=== PATIENT | male | born 1970 | race Caucasian/White ===

== ENCOUNTER → 2019-04-15 12:56 | Outpatient (CLI) | payer BC, SELFPAY ==
[2019-04-15 14:22] LABS: Prostate Specific Antigen 2.29 ng/mL (0.10-4.00)
== END ==
PROVIDERS: Visit Provider Urology
DX: Z80.42 Family history of malignant neoplasm of prostate (principal); N40.1 Benign prostatic hyperplasia with lower urinary tract symptoms; N13.8 Other obstructive and reflux uropathy
CPT/HCPCS: 36415; 84153

== ENCOUNTER → 2020-04-29 12:34 | Outpatient (CLI) | payer BC, SELFPAY ==
--- NOTE | 2020-04-29 13:14 | DI.CT.S_ITS ---
PROCEDURE: CT ABDOMEN PELVIS WO/W CON INDICATIONS: Gross hematuria TECHNIQUE: Optional 5 mm thick noncontrast images acquired from the diaphragm to the symphysis pubis. After the administration of intravenous contrast, 5 mm thick images acquired from the diaphragm to the symphysis pubis after a 10-minute delay. 2 mm thick coronal and sagittal reformats were then performed of the kidneys and ureters. For radiation dose reduction, the following was used: automated exposure control, adjustment of mA and/or kV according to patient size. COMPARISON: None. FINDINGS: Image quality: Excellent. Lung bases: Lung bases are clear. Heart size is normal. Urinary system: Both kidneys are normal in size, without hydronephrosis or nephrolithiasis on pre-contrast images. No perinephric fat stranding. Postcontrast, there is demonstrated numerous ovoid hypodensities, mainly subcentimeter in size at the corticomedullary junctions resulting in blunting of some of the papillary contours. There are no more distal visible filling defects, although the right ureter is not well opacified. No suspicious filling defects within the urinary bladder. The prostate gland is enlarged. Other solid organs: Liver is normal in size and enhancement. A slightly irregular hypodensity is present in the lateral dome of the liver, and upper aspect of the spleen, both potential hemangiomas. Other scattered hypodensities too small to characterize are seen in the liver. Gallbladder contains a small noncalcified hyperdensity along the lateral wall measuring approximately 5 mm, potentially a polyp. Biliary system is non dilated. Pancreas enhances normally. Spleen is normal in size and enhancement. No adrenal nodules. Peritoneum and bowel: Bowel loops demonstrate normal wall thickness and caliber. No free fluid or air. Nodes and vessels: No retroperitoneal or mesenteric adenopathy by size criteria. Aorta and inferior vena cava are normal in size. Abdominal wall: No ventral hernias. Pelvis: No pathologic free pelvic fluid. No inguinal hernias or adenopathy. Bones: No suspicious bony lesions. No vertebral body compression fractures. IMPRESSION: 1. 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 2. Probable hemangiomas in the spleen and liver. 3. Prostatomegaly which may also contribute to hematuria. Dictated by: Brianna Escamilla M.D. on 04/29/2020 at 15:18 Approved by: Brianna Escamilla M.D. on 04/29/2020 at 15:46
[2020-04-29 15:40] LABS: Alanine Aminotransferase 14 IU/L (<50); Albumin 4.4 g/dL (3.5-5.0); Albumin Globulin Ratio 1.6 (1.0-2.8); Alkaline Phosphatase 55 U/L (38-126); Aspartate Aminotransferase 23 IU/L (17-59); BUN Creatinine Ratio 12.4 (6-22); Bilirubin Total 0.4 mg/dL (0.2-1.3); Blood Urea Nitrogen 11 mg/dL (9-20); Calcium 9.5 mg/dL (8.4-10.2); Carbon Dioxide 28 mmol/L (22-32); Chloride 98 mmol/L (98-107); Estimated Glomerular Filt Rate > 60.0 mL/min (>60); Globulin 2.8 g/dL (1.7-4.1); Glucose 86 mg/dL (70-100); HEMOLYSIS < 15 (0-50); Potassium 4.3 mmol/L (3.4-5.1); Sodium 135 mmol/L (137-145); Total Protein 7.2 g/dL (6.3-8.2)
[2020-04-29 16:08] LABS: Prostate Specific Antigen 3.92 ng/mL (0.10-4.00)
== END ==
PROVIDERS: Referring Provider Urology; Visit Provider Urology
DX: Z12.5 Encounter for screening for malignant neoplasm of prostate (principal); R31.0 Gross hematuria; N28.1 Cyst of kidney, acquired; N40.0 Benign prostatic hyperplasia without lower urinary tract symptoms
CPT/HCPCS: 36415; 74178; 80053; 84153; Q9967

== ENCOUNTER → 2021-05-17 09:37 | Outpatient (CLI) | payer BC, SELFPAY ==
[2021-05-17 10:29] LABS: COVID19 -Nasal RAPID Negative (Negative)
== END ==
PROVIDERS: Visit Provider Surgery
DX: Z20.822 Contact with and (suspected) exposure to COVID-19 (principal)
CPT/HCPCS: 87635; C9803

== ENCOUNTER 2021-05-18 15:12 | Day surgery (SDC) | payer BC, SELFPAY ==
--- NOTE | 2021-05-18 | PATH_ITS ---
[facility] Accession Number: [id number] . 01 Material submitted: . colon - POLYP ASCENDING COLON . 02 Diagnosis: Ascending Colon Polyp, Biopsy: Inflammatory polyp. MRV 05/23/2021 1038 Local . 02 Electronically signed: . Agustín Wan MD, PhD, Pathologist NPI- [id number] . 01 Gross description: . POLYP ASCENDING COLON: Received in formalin is 1 fragment(s) of garcia, soft tissue measuring 0.5 x 1.0 x 0.5 cm submitted entirely in 1 cassette(s) /ARJUN 05/19/2021 0708 Local . 02 Pathologist provided ICD-10: K51.40 . 02 CPT . 936403 Performed at: 01 [facility] [address] [facility], [place], [place] [id number] MD Saroj Hernandez MD Phone: [phone] Performed at: 02 [facility] [address] [place], [place] [id number] MD Saundra Carlson MD Phone: [phone]
[2021-05-18 15:38] VITALS: BP 115/67; PULSE 62; RESP 16; TEMP 36.6; BMI 23.7
[2021-05-18] MEDS: LACTATED RINGERS 1,000 ML 200 ML IV (15:54)
--- NOTE | 2021-05-18 16:06 | PM.HP.1 ---
History of Present Illness History of Present Illness Date Patient Seen: 05/18/21 Time Patient Seen: 16:06 Chief complaint: SDC Narrative: The patient presents for colorectal sreening. They have never had any previous examination for such. No personal or family history of colon cancer. On further history denies any recent gastrointestinal symptoms. No nausea, vomiting, abdominal pain, loss of appetite, unexplained weight loss, change in bowel habits, diarrhea, constipation, melena, hematochezia, or bright red blood per rectum. Patient History Family & Social History Social History: household members spouse Tobacco & Substance use: Smoking Status Never smoker alcohol intake current alcohol intake frequency 0-2 drinks per day Substance Use Type does not use Meds Home Medications and Allergies Allergies Allergy/AdvReac Type Severity Reaction Status Date / Time No Known Drug Allergies Allergy Verified 05/18/21 15:35 Review of Systems Review of Systems ROS: Yes All systems reviewed with the patient and are negative except as otherwise documented Exam Vital Signs (past 8 hours): - 05/18/21 15:38 Temperature 97.9 F Pulse Rate 62 Respiratory Rate 16 Blood Pressure 115/67 Oxygen Delivery Method Room Air Narrative Exam Narrative: GENERAL-well developed adult male, no acute distress HEENT-no scleral icterus, hearing intact NECK-no JVD, trachea midline CVS- regular rate, no peripheral edema RESP-unlabored respiratory effort, no audible wheezing GI-soft, nontender nondistended MSK-no cyanosis or clubbing, extremities without deformity SKIN-warm, dry NEURO-alert and oriented, no focal deficits PYSCH-Appropriate mood and affect Assessment & Plan Assessment & Plan narrative: The patient requires colorectal screening and colonoscopy is recommended. Technical details were discussed. Risks, benefits, alternatives explained. Risks including but not limited to myocardial infarction, aspiration, bleeding, pain, missed lesion, incomplete examination, need for further radiographic studies, colonic perforation, and need for major abdominal surgery were discussed. All questions were answered to their satisfaction, and they are in agreement with this plan.
[2021-05-18] MEDS: MIDAZOLAM 5 MG/5 ML VIAL IV (16:21)
[2021-05-18] MEDS: fentaNYL 250 MCG/5 ML INJ IV (16:21)
--- NOTE | 2021-05-18 16:38 | P.OP.ENDO_ITS ---
Operative Date/Time/Diagnoses Date of procedure: 05/18/21 Time of procedure: 16:38 Pre-op diagnosis: Screening colonoscopy Post-op diagnosis: same Procedure & Clinicians Study performed: Colonoscopy and polypectomy Same procedure as scheduled: Yes Indications: Screening colonoscopy Surgeon: Alberto Stiles Procedure Notes Procedure in detail: Medications: Conscious sedation using 10 mg IV midazolam and 200 mcg IV of fentanyl The history and physical was performed/updated and the patient is ASA class is 1. The procedure was discussed in detail with the patient. Potential risks complications including infection, bleeding, missed diagnosis, perforation, need for surgery, and were explained. Their questions were answered and informed consent was obtained. Patient was brought to the procedure room and placed standard monitoring equipment. The patient's vital signs were monitored continuously throughout the entire procedure. Prior to starting time-out was performed. The patient was placed in the left lateral recumbent position. Procedural sedation was administered. Examination began with a thorough inspection of the perianal area there was no evidence of fissures, fistulae, external hemorrhoids or cutaneous malignancy. The colonoscopy scope was then placed into the anal canal and was advanced to the cecum, which was identified by the ileocecal valve, the appendiceal orifice and the confluence of the taenia. The scope was then slowly withdrawn examining colon thoroughly in all directions, irrigating it of any residual stool. 1. 1 cm polyp in the ascending colon on a long stalk was removed with the cold s nare. The patient tolerated the procedure well. They will be discharged once criteria are met. The prep was of good/excellent quality. The withdrawl time was 7 minutes. The sedation time was 28minutes. Specimen(s): other (Ascending colon polyp) Complications: none Impression: Colonic polyp Post-procedure Recommendations: Colonscopy in 5 years Disposition: same day surgery
[2021-05-18 16:40] VITALS: BP 112/74; PULSE 59; RESP 12; TEMP 36.4; O2SAT 98
[2021-05-18 16:45] VITALS: BP 117/73; PULSE 59; RESP 12; O2SAT 97
[2021-05-18 16:50] VITALS: BP 112/77; PULSE 65; RESP 12; O2SAT 97
[2021-05-18 16:57] VITALS: BP 118/73; PULSE 68; RESP 10; O2SAT 99
[2021-05-18 17:03] VITALS: BP 119/52; PULSE 64; RESP 11; TEMP 36.3; O2SAT 98
== END 2021-05-18 17:13 | disposition home or self-care (01) ==
PROVIDERS: Referring Provider Surgery; Visit Provider Surgery
PROC: 0DJD8ZZ Inspection of Lower Intestinal Tract, Via Natural or Artificial Opening Endoscopic (ICD-10-PCS; CPT 45378; principal; 2021-05-18 16:00)
DX: Z12.11 Encounter for screening for malignant neoplasm of colon (principal); K51.40 Inflammatory polyps of colon without complications
CPT/HCPCS: 45385; 99152; 99153; J2250; J3010

== ENCOUNTER 2022-05-25 00:39 | Emergency (ER) | payer BC, SELFPAY ==
[2022-05-25] VITALS (7 sets, daily range): BP systolic 90–125; BP diastolic 51–72; PULSE 60–70; RESP 7–20; TEMP 36.5; O2SAT 94–100; BMI 23.7
--- NOTE | 2022-05-25 01:27 | DI.CT.S_ITS ---
PROCEDURE: CT HEAD/BRAIN WO CON INDICATIONS: Fall/injury TECHNIQUE: Noncontrast 4.5 mm thick angled axial sections acquired from the foramen magnum to the vertex, with coronal and sagittal reformats. For radiation dose reduction, the following was used: automated exposure control, adjustment of mA and/or kV according to patient size. COMPARISON: None. FINDINGS: Image quality: Excellent. CSF spaces: Basal cisterns are patent. No extra-axial fluid collections. Ventricles are normal in size and shape. Brain: No midline shift. No intracranial masses or hemorrhage. Ambrocio-white matter interface is normal. Skull and face: Calvarium and visualized facial bones are intact, without suspicious lesions. Sinuses: Visualized sinuses and mastoids are clear. IMPRESSION: No acute intracranial disease process. Dictated by: Dede Goldman MD, PhD on 05/25/2022 at 7:15 Approved by: Dede Goldman MD, PhD on 05/25/2022 at 7:16
--- NOTE | 2022-05-25 01:29 | ED_ITS ---
HPI - Head Injury General Chief complaint: Head Injury Stated complaint: FELL HIT HEAD BLEEDING, COVID + Time Seen by Provider: 05/25/22 01:22 Source: patient and family Mode of arrival: Ambulatory History of Present Illness HPI Narrative: Patient brought here by and son. Was getting up to go the bathroom and felt very dizzy and fell hitting his head against a door and floor. He does recall the injury. No loss of consciousness. Patient is not on a blood thinner. Patient has not felt well since this past Saturday. Tested positive for COVID. Did have cough aches and chills. Also had diarrhea in the 1st couple of days but that has improved. He states he has not had appetite and not eating or drinking very much. Blood pressure noted. Patient is awake alert oriented x4. Related Data Allergies Allergy/AdvReac Type Severity Reaction Status Date / Time No Known Drug Allergies Allergy Verified 05/18/21 15:35 Review of Systems Review of Systems Narrative: GENERAL: Denies chills, fatigue, malaise, fever, sweats. HEENT: Denies sinus pain, ear pain, sore throat RESPIRATORY: Denies dyspnea, cough CARDIOVASCULAR: Denies chest pain, palpitations GASTROINTESTINAL: Denies nausea, vomiting, abdominal pain, positive for diarrhea : Denies dysuria, frequency, hematuria MUSCULOSKELETAL: Positive for muscle or bony pain SKIN: Denies rash, skin lesions, positive for skin injury NEUROLOGIC: Denies weakness, numbness ROS Unobtainable: All systems reviewed & are unremarkable except as noted in HPI and below Patient History Social History household members: spouse Smoking Status: Never smoker alcohol intake: current Smoking Status: Never smoker alcohol intake frequency: 0-2 drinks per day Substance Use Type: does not use Exam Narrative Exam Narrative: GENERAL: in no distress, not toxic not dyspneic HEAD: Normocephalic. There are 2 semicircular lacerations on the right side of forehead and the left side of forehead. Base visualized. No bony or muscle injury seen. Bleeding is controlled. Base visualized. No foreign body. EYES: Pupils equal round No scleral icterus. ENT: Mucous membranes moist. NECK: Trachea midline. No midline tenderness or step-off. CARDIOVASCULAR: Regular rate and rhythm without murmurs RESPIRATORY: Clear to auscultation. Breath sounds equal bilaterally. No wheezes, rales, or rhonchi. GASTROINTESTINAL: Abdomen soft, non-tender EXTREMITIES: No gross deformities. NEURO: AOx4. SKIN: Warm and dry PSYCH: Not anxious, is cooperative Initial Vital Signs Initial Vital Signs: Vital Signs Temperature 97.7 F 05/25/22 00:47 Pulse Rate 63 05/25/22 00:47 Respiratory Rate 20 05/25/22 00:47 Blood Pressure 90/51 L 05/25/22 00:47 Pulse Oximetry 98 05/25/22 00:47 Oxygen Delivery Method 05/25/22 00:47 Procedures Laceration Repair Laceration 1: Time of procedure: 02:53 Site: face (Right forehead) Side (If applicable): right Size (cm): 2 Description: other (Rectangular flap) Depth: simple, single layer Local Anesthetic: lidocaine 1% and with epi Amount of anesthesia used (mL): 1 Pre-repair: wound explored, irrigated extensively and cleansed with chlorhexadine Skin layer closed with: nylon Skin layer suture size: 5-0 Number of sutures: 5 Technique: simple, interrupted Laceration 2: Time of procedure: 02:55 Site: face Side (If applicable): left Size (cm): 2 Description: other (Skin avulsion with 3 mm with) Depth: simple, single layer Local Anesthetic: lidocaine 1% and with epi Amount of anesthesia used (mL): 1 Pre-repair: wound explored, irrigated extensively and cleansed with chlorhexadine Skin layer closed with: nylon Skin layer suture size: 5-0 Number of sutures: 4 Technique: simple, interrupted Course Course Course Narrative: No new issues during course of stay. Orders Ordered: Discontinued Medications Bacitracin (Bacitracin Oint 0.9 Gm Pckt) 2 applic TOP NOW ONE Stop: 05/25/22 02:53 Last Admin: 05/25/22 04:20 Dose: 2 applic Documented By: JOSE MANUEL Diphtheria/Tetanus/Acell Pertussis (Tet,Diph,Pertuss(Acell),Vac/Pf 0.5 Ml Syringe) 0.5 ml IM .ONCE ONE Stop: 05/25/22 01:32 Last Admin: 05/25/22 02:05 Dose: 0.5 ml Documented By: JOSE MANUEL Sodium Chloride (Normal Saline 0.9%) 1,000 mls @ 1,000 mls/hr IV BOLUS ONE Stop: 05/25/22 02:26 Last Infusion: 05/25/22 03:19 Dose: 0 mls/hr Documented By: JOSE MANUEL Admin: 05/25/22 02:04 Dose: 1,000 mls/hr Documented By: JOSE MANUEL Sodium Chloride (Normal Saline 0.9%) 1,000 mls @ 1,000 mls/hr IV BOLUS ONE Stop: 05/25/22 03:59 Last Infusion: 05/25/22 04:20 Dose: 0 mls/hr Documented By: JOSE MANUEL Admin: 05/25/22 03:19 Dose: 1,000 mls/hr Documented By: JOSE MANUEL Lidocaine/Epinephrine (Lidocaine 1% W/Epi) 10 ml SUBCUT NOW ONE Stop: 05/25/22 02:28 Last Admin: 05/25/22 03:20 Dose: 10 ml Documented By: JOSE MANUEL Reevaluation(s) Reevaluation #1: Reviewed results with patient. Patient tolerated sutures very well. Suture wound care instructions given. Return precautions reviewed. Not toxic at discharge. Patient feeling much better after IV fluids. Time: 04:20 Vital Signs Vital signs: Vital Signs - 8 hr 05/25/22 00:47 Temperature 97.7 F Pulse Rate 63 Respiratory Rate 20 Blood Pressure 90/51 L Pulse Oximetry 98 Oxygen Delivery Method Room Air MDM - Head Injury Differential Diagnosis Differential diagnosis: Likely closed head injury and other ( vasovagal syncope /head laceration) Lab Data Result diagrams: 05/25/22 01:22 05/25/22 01:22 Labs: Lab Results 05/25/22 05/25/22 05/25/22 Range/Units 01:22 01:22 01:22 WBC 4.2 L (4.5-11.0) X10^3/uL RBC 4.18 L (4.5-5.9) X10^6/uL Hgb 13.2 L (13.5-17.5) g/dL Hct 38.2 L (41-53) % MCV 91.4 (80-100) fL MCH 31.5 (26-34) PG MCHC 34.5 (30-36) % RDW 12.8 (11.6-14.8) % Plt Count 176 (150-400) X10^3/uL Neut % (Auto) 48.2 L (50-75) % Lymph % (Auto) 37.1 (25-40) % Miller % (Auto) 13.9 (3-14) % Eos % (Auto) 0.1 L (2-4) % Baso % (Auto) 0.7 (0-2) % Neut # (Auto) 2000 (0806-9382) /uL Lymph # (Auto) 1600 (9503-0618) /uL Miller # (Auto) 600 (0-900) /uL Eos # (Auto) 0 (0-450) /uL Baso # (Auto) 0 (0-100) /uL Sodium 137 (137-145) mmol/L Potassium 3.3 L (3.4-5.1) mmol/L Chloride 98 (98-107) mmol/L Carbon Dioxide 31 (22-32) mmol/L BUN 19 (9-20) mg/dL Creatinine 1.17 (0.66-1.25) mg/dL Estimated GFR > 60 (>60) mL/min BUN/Creatinine Ratio 16.2 (6-22) Glucose 116 H (70-100) mg/dL Lactate 1.1 (0.7-2.1) mmol/L Calcium 8.8 (8.4-10.2) mg/dL Total Bilirubin 0.4 (0.2-1.3) mg/dL AST 34 (17-59) IU/L ALT 18 (<50) IU/L Alkaline Phosphatase 52 (38-126) U/L Total Protein 7.6 (6.3-8.2) g/dL Albumin 4.2 (3.5-5.0) g/dL Globulin 3.4 (1.7-4.1) g/dL Albumin/Globulin Ratio 1.2 (1.0-2.8) Procalcitonin 0.08 (<0.5) ng/mL Imaging Data CT scan - head: Radiologist's Impression: read by overnight radiologist impression no CT evidence of acute intracranial pathology. MDM Narrative Medical decision making narrative: Appropriate for discharge home. Patient likely had vasovagal syncope/due to dehydration. Exam and laboratory studies and imaging are reassuring. Patient tolerated suture repair very well. Patient received 2 L of normal saline. Feeling much better at time of discharge. Return precautions reviewed with him. Wound care instructions reviewed as well. Discharge Plan Departure Patient Disposition: Home Clinical Impression: Syncope, vasovagal, Complex laceration of forehead Instructions: DI for Dehydration -- Adult, DI for Laceration Repair -- Complex Suture, DI for Closed Head Injury Activity Restrictions/Additional Instructions: Drink plenty of water. Keep well hydrated. Be sure to clean here for head skin wounds daily with warm soap and water and then apply a thin layer of topical antibiotic. Five stitches on the right and 4 stitches on the left need to be removed in 10 days. May return here or go to clinic or see your family doctor. Keep your skin wounds out of sun exposure. Scarring may occur but will need re- evaluation by your family doctor. May shower but no submersion of head under water/swimming Visit Report Forms: Patient Portal/API
[2022-05-25 01:37] LABS: Add Manual Diff / Slide Review NO; Basophils Absolute Auto 0 /uL (0-100); Basophils Percent Auto 0.7 % (0-2); Eosinophils Absolute Auto 0 /uL (0-450); Eosinophils Percent Auto 0.1 % (2-4); Hematocrit 38.2 % (41-53); Hemoglobin 13.2 g/dL (13.5-17.5); Lymphocytes Absolute Auto 1600 /uL (1100-4500); Lymphocytes Percent Auto 37.1 % (25-40); Mean Corpuscular HGB Conc 34.5 % (30-36); Mean Corpuscular Hemoglobin 31.5 PG (26-34); Mean Corpuscular Volume 91.4 fL (80-100); Monocytes Absolute Auto 600 /uL (0-900); Monocytes Percent Auto 13.9 % (3-14); Neutrophils Absolute Auto 2000 /uL (1500-7000); Neutrophils Percent Auto 48.2 % (50-75); Platelet Count 176 X10^3/uL (150-400); Red Blood Cell Count 4.18 X10^6/uL (4.5-5.9); Red Cell Distribution Width 12.8 % (11.6-14.8); White Blood Cell Count 4.2 X10^3/uL (4.5-11.0)
[2022-05-25 01:40] LABS: Lactate (Lactic Acid) 1.1 mmol/L (0.7-2.1)
[2022-05-25 01:41] LABS: Alanine Aminotransferase 18 IU/L (<50); Albumin 4.2 g/dL (3.5-5.0); Albumin Globulin Ratio 1.2 (1.0-2.8); Alkaline Phosphatase 52 U/L (38-126); Aspartate Aminotransferase 34 IU/L (17-59); BUN Creatinine Ratio 16.2 (6-22); Bilirubin Total 0.4 mg/dL (0.2-1.3); Blood Urea Nitrogen 19 mg/dL (9-20); Calcium 8.8 mg/dL (8.4-10.2); Carbon Dioxide 31 mmol/L (22-32); Chloride 98 mmol/L (98-107); Estimated Glomerular Filt Rate > 60 mL/min (>60); Globulin 3.4 g/dL (1.7-4.1); Glucose 116 mg/dL (70-100); HEMOLYSIS < 15 (0-50); Potassium 3.3 mmol/L (3.4-5.1); Sodium 137 mmol/L (137-145); Total Protein 7.6 g/dL (6.3-8.2)
[2022-05-25 01:57] LABS: Procalcitonin 0.08 ng/mL (<0.5)
[2022-05-25] MEDS: SODIUM CHLORIDE 0.9% 1,000 ML 1000 ML IV ×2 (02:04→03:19)
[2022-05-25] MEDS: TET,DIPH,PERTUSS(ACELL),VAC/PF 0.5 ML SYRINGE IM (02:05)
[2022-05-25] MEDS: LIDOCAINE 1% W/EPI 10 ML SUBCUT (03:20)
[2022-05-25] MEDS: BACITRACIN OINT 0.9 GM PCKT 2 APPLIC TOP (04:20)
== END 2022-05-25 05:07 | disposition home or self-care (01) ==
PROVIDERS: Emergency Provider Emergency Medicine
DX: R55 Syncope and collapse (principal); S01.81XA Laceration without foreign body of other part of head, initial encounter; Z23 Encounter for immunization; U07.1 COVID-19
CPT/HCPCS: 12013; 36415; 70450; 80053; 83605; 84145; 85025; 90471; 96360; 96361; 99284; 90715

== ENCOUNTER 2022-12-07 07:40 | Emergency (ER) | payer BC, SELFPAY ==
[2022-12-07 07:43] VITALS: BP 127/77; PULSE 51; RESP 17; TEMP 36.6; O2SAT 100; BMI 24.4
[2022-12-07 07:46] VITALS: BP 127/77
[2022-12-07 07:47] VITALS: PULSE 54; O2SAT 99
--- NOTE | 2022-12-07 07:54 | ED_ITS ---
HPI - Abdominal Pain General Chief Complaint: Abdominal Pain Stated Complaint: sent by [facility] abd pain t-3 ruling out appendicitis Time Seen by Provider: 12/07/22 07:49 History of Present Illness HPI narrative: Patient is a 52-year-old healthy male who presents with right lower quadrant karla n ongoing for the last 3 days. States it has not moved or migrated. He is had loss of appetite has not had anything since lunch yesterday. No fever or chills. No flank pain. He reports that about 3 weeks ago he had some hematuria that resolved spontaneously. Denies any nausea or vomiting. He says it is definitely better when he does not move in his lying flat. But the car ride and walking do not necessarily make it worse. Denies any chest pain palpitation shortness of breath Related Data Allergies Allergy/AdvReac Type Severity Reaction Status Date / Time No Known Drug Allergies Allergy Verified 05/18/21 15:35 Patient History Social History household members: spouse Smoking Status: Never smoker alcohol intake: current Smoking Status: Never smoker alcohol intake frequency: 0-2 drinks per day Substance Use Type: does not use Exam Initial Vital Signs Initial Vital Signs: Vital Signs Temperature 97.9 F 12/07/22 07:43 Pulse Rate 51 L 12/07/22 07:43 Respiratory Rate 17 12/07/22 07:43 Blood Pressure 127/77 12/07/22 07:43 Pulse Oximetry 100 12/07/22 07:43 Oxygen Delivery Method 12/07/22 07:43 GENERAL: Alert pleasant 52-year-old male no acute distress HEENT: Head atraumatic,EOMI, pupils reactive, face symmetric, moist mucous membranes CARDIOVASCULAR: Regular rate and rhythm without murmurs, rubs or gallops. RESPIRATORY: Breath sounds equal bilaterally, no wheezes rales or rhonchi. ABDOMEN: Soft, tender right lower quadrant no guarding no rebound : No CVA tenderness EXTREMITIES: Normal range of motion, no clubbing or edema. Neurovascularly intact NEUROLOGICAL: Alert and oriented x4.Normal gait and speech. SKIN: Warm, dry, no laceration, no petechiae, no rashes or lesions. Course Orders Ordered: ED Orders 12/07/22 07:53 Complete Blood Count AUTO DIFF Stat Comprehensive Metabolic Panel Stat Lipase Stat 12/07/22 08:00 CT abdomen pelvis w con Stat Vital Signs Vital signs: Vital Signs - 8 hr 12/07/22 07:43 12/07/22 07:46 12/07/22 07:47 Temperature 97.9 F Pulse Rate 51 L 54 L Respiratory Rate 17 Blood Pressure 127/77 127/77 Pulse Oximetry 100 99 Oxygen Delivery Method Room Air 12/07/22 08:00 Temperature Pulse Rate 58 L Respiratory Rate Blood Pressure Pulse Oximetry 97 Oxygen Delivery Method MDM - Abdominal Pain Lab Data Result diagrams: 12/07/22 07:53 12/07/22 07:53 Labs: Lab Results 12/07/22 12/07/22 Range/Units 07:53 07:53 WBC 4.6 (4.5-11.0) X10^3/uL RBC 4.21 L (4.5-5.9) X10^6/uL Hgb 13.2 L (13.5-17.5) g/dL Hct 38.9 L (41-53) % MCV 92.2 (80-100) fL MCH 31.5 (26-34) PG MCHC 34.1 (30-36) % RDW 13.2 (11.6-14.8) % Plt Count 254 (150-400) X10^3/uL Neut % (Auto) 54.6 (50-75) % Lymph % (Auto) 30.4 (25-40) % Boyd % (Auto) 8.7 (3-14) % Eos % (Auto) 5.3 H (2-4) % Baso % (Auto) 1.0 (0-2) % Neut # (Auto) 2500 (5900-2944) /uL Lymph # (Auto) 1400 (2264-4446) /uL Boyd # (Auto) 400 (0-900) /uL Eos # (Auto) 200 (0-450) /uL Baso # (Auto) 0 (0-100) /uL Sodium 140 (137-145) mmol/L Potassium 3.9 (3.4-5.1) mmol/L Chloride 101 (98-107) mmol/L Carbon Dioxide 31 (22-32) mmol/L BUN 13 (9-20) mg/dL Creatinine 0.89 (0.66-1.25) mg/dL Estimated GFR > 60 (>60) mL/min BUN/Creatinine Ratio 14.6 (6-22) Glucose 89 (70-100) mg/dL Calcium 9.6 (8.4-10.2) mg/dL Total Bilirubin 0.7 (0.2-1.3) mg/dL AST 25 (17-59) IU/L ALT 18 (<50) IU/L Alkaline Phosphatase 68 (38-126) U/L Total Protein 8.1 (6.3-8.2) g/dL Albumin 4.4 (3.5-5.0) g/dL Globulin 3.7 (1.7-4.1) g/dL Albumin/Globulin Ratio 1.2 (1.0-2.8) Lipase 49 (23-300) U/L Imaging Data CT scan - abdomen/pelvis: Radiologist's Impression: [facility] Person [id number] CT Scan Report Signed Patient: Yoan Lopez MR#: [id number] : 1970 Acct:[id number] Age/Sex: 52 / M Date of Service: 12/07/22 Loc: ED Accession Number: [id number] ?? Procedure: CT abdomen pelvis w con Ordering Provider: Sofia Mcbride D.O. PROCEDURE:? CT ABDOMEN PELVIS W CON ? INDICATIONS:? RLQ pain ? TECHNIQUE:? After the administration of intravenous contrast, axial sections acquired from the lung bases to the pubic symphysis.? Coronal and sagittal reformats were performed.? For radiation dose reduction, the following was used:? automated exposure control, adjustment of mA and/or kV according to patient size.? ? COMPARISON:? [facility], CT, CT ABDOMEN PELVIS WO/W CON, 04/29/2020, 13:16. ? FINDINGS: Image quality:? Excellent.? ? Lung bases:? Lung bases are clear.? Heart size is normal. ? Solid organs:? Liver: The liver has no mass or intrahepatic biliary ductal dilatation. The portal vein and hepatic veins are patent.? 2.7 x 1.7 centimeter hypodensity in the lateral right lobe of the liver.? A few additional subcentimeter hypodensities are also seen.? These are unchanged and likely hemangiomas. Biliary: The gallbladder has no gallstones, pericholecystic fluid, gallbladder wall thickening, or surrounding inflammatory change. Pancreas: The pancreas has no mass or ductal dilatation. There is no surrounding inflammation. Spleen:? The spleen has a 2 centimeter cyst with peripheral calcifications which appears benign likely a hemangioma.? Adrenals: No hypertrophy or nodules. Kidneys: No obstructive calculus or hydronephrosis.? No solid mass. No cystic mass.? 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 ? Peritoneum and bowel:? The distal esophagus and stomach are normal.? The small bowel has a normal caliber and appearance. The terminal ileum is normal. The large bowel has a normal caliber and appearance.? The appendix is normal. No free fluid or air.? ? Nodes and vessels:? No retroperitoneal or mesenteric adenopathy by size criteria.? Aorta and inferior vena cava are normal in size.? ? Miscellaneous:? No abdominal wall mass or hernia.? The prostate is enlarged. ? PELVIS:? Genitourinary:? The bladder has no wall thickening or mass. No bladder calcifications. ? Bones:? No suspicious bony lesions.? Central height loss of the L1 vertebral body.? No vertebral body compression fractures.? ? IMPRESSION: 1. No acute abdominal or pelvic abnormality. 2. Constipation. 3. Benign hemangiomas of the spleen and liver.? ? Dictated by: Giovanni Franklin M.D. on 12/07/2022 at 8:28 ? ? [facility] Narrative Medical decision making narrative: Patient 52-year-old male who presents with few days of right lower quadrant pain. He is afebrile without leukocytosis or signs of sepsis. He is mildly tender in the right lower quadrant. CT shows constipation without signs of appendicitis or nephrolithiasis. Also found to have benign hemangiomas of liver and spleen. Blood work is overall reassuring. At this time recommend outpatient follow-up and [id number] medication. Patient reports that he did have a bowel movement this morning that was normal. Differential diagnosis includes appendicitis nephrolithiasis diverticulitis perforation ischemic bowel Discharge Plan Departure Patient Disposition: Home Clinical Impression: Constipation Instructions: DI for Constipation Activity Restrictions/Additional Instructions: *You have been diagnosed with constipation *What to do: At this time there is no sign of appendicitis. Recommend water walking and high-fiber diet *Continue to take medications as directed MiraLax once a day if needed for constipation *Follow up with your primary care provider in 2-3 days or call [phone] *Return to ER if you should have increasing pain fever nausea vomiting or any new, worsening or concerning symptoms Referrals: Meliton Hung MD [Primary Care Provider] - Stand Alone Forms: Patient Portal/API
[2022-12-07 08:00] VITALS: PULSE 58; O2SAT 97
--- NOTE | 2022-12-07 08:00 | DI.CT.S_ITS ---
PROCEDURE: CT ABDOMEN PELVIS W CON INDICATIONS: RLQ pain TECHNIQUE: After the administration of intravenous contrast, axial sections acquired from the lung bases to the pubic symphysis. Coronal and sagittal reformats were performed. For radiation dose reduction, the following was used: automated exposure control, adjustment of mA and/or kV according to patient size. COMPARISON: [facility], CT, CT ABDOMEN PELVIS WO/W CON, 04/29/2020, 13:16. FINDINGS: Image quality: Excellent. Lung bases: Lung bases are clear. Heart size is normal. Solid organs: Liver: The liver has no mass or intrahepatic biliary ductal dilatation. The portal vein and hepatic veins are patent. 2.7 x 1.7 centimeter hypodensity in the lateral right lobe of the liver. A few additional subcentimeter hypodensities are also seen. These are unchanged and likely hemangiomas. Biliary: The gallbladder has no gallstones, pericholecystic fluid, gallbladder wall thickening, or surrounding inflammatory change. Pancreas: The pancreas has no mass or ductal dilatation. There is no surrounding inflammation. Spleen: The spleen has a 2 centimeter cyst with peripheral calcifications which appears benign likely a hemangioma. Adrenals: No hypertrophy or nodules. Kidneys: No obstructive calculus or hydronephrosis. No solid mass. No cystic mass. 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 Peritoneum and bowel: The distal esophagus and stomach are normal. The small bowel has a normal caliber and appearance. The terminal ileum is normal. The large bowel has a normal caliber and appearance. The appendix is normal. No free fluid or air. Nodes and vessels: No retroperitoneal or mesenteric adenopathy by size criteria. Aorta and inferior vena cava are normal in size. Miscellaneous: No abdominal wall mass or hernia. The prostate is enlarged. PELVIS: Genitourinary: The bladder has no wall thickening or mass. No bladder calcifications. Bones: No suspicious bony lesions. Central height loss of the L1 vertebral body. No vertebral body compression fractures. IMPRESSION: 1. No acute abdominal or pelvic abnormality. 2. Constipation. 3. Benign hemangiomas of the spleen and liver. Dictated by: Giovanni Franklin M.D. on 12/07/2022 at 8:28 Approved by: Giovanni Franklin M.D. on 12/07/2022 at 8:36
[2022-12-07 08:01] LABS: Add Manual Diff / Slide Review NO; Basophils Absolute Auto 0 /uL (0-100); Eosinophils Absolute Auto 200 /uL (0-450); Eosinophils Percent Auto 5.3 % (2-4); Hematocrit 38.9 % (41-53); Hemoglobin 13.2 g/dL (13.5-17.5); Lymphocytes Absolute Auto 1400 /uL (1100-4500); Lymphocytes Percent Auto 30.4 % (25-40); Mean Corpuscular HGB Conc 34.1 % (30-36); Mean Corpuscular Hemoglobin 31.5 PG (26-34); Mean Corpuscular Volume 92.2 fL (80-100); Monocytes Absolute Auto 400 /uL (0-900); Monocytes Percent Auto 8.7 % (3-14); Neutrophils Absolute Auto 2500 /uL (1500-7000); Neutrophils Percent Auto 54.6 % (50-75); Platelet Count 254 X10^3/uL (150-400); Red Blood Cell Count 4.21 X10^6/uL (4.5-5.9); Red Cell Distribution Width 13.2 % (11.6-14.8); White Blood Cell Count 4.6 X10^3/uL (4.5-11.0)
[2022-12-07 08:18] LABS: Alanine Aminotransferase 18 IU/L (<50); Albumin 4.4 g/dL (3.5-5.0); Albumin Globulin Ratio 1.2 (1.0-2.8); Alkaline Phosphatase 68 U/L (38-126); Aspartate Aminotransferase 25 IU/L (17-59); BUN Creatinine Ratio 14.6 (6-22); Bilirubin Total 0.7 mg/dL (0.2-1.3); Blood Urea Nitrogen 13 mg/dL (9-20); Calcium 9.6 mg/dL (8.4-10.2); Carbon Dioxide 31 mmol/L (22-32); Chloride 101 mmol/L (98-107); Estimated Glomerular Filt Rate > 60 mL/min (>60); Globulin 3.7 g/dL (1.7-4.1); Glucose 89 mg/dL (70-100); HEMOLYSIS < 15 (0-50); Lipase 49 U/L (23-300); Potassium 3.9 mmol/L (3.4-5.1); Sodium 140 mmol/L (137-145); Total Protein 8.1 g/dL (6.3-8.2)
[2022-12-07 09:13] VITALS: BP 130/58; PULSE 52; O2SAT 98
[2022-12-07 09:26] LABS: RBC Urine 1-5/HPF (0-5/HPF); Squamous Epithelial Cell Urine 0-1 /HPF (0-5/HPF); WBC Urine 0-1/HPF (0-5/HPF)
[2022-12-07 09:27] LABS: Bacteria Urine Moderate (10-30); Culture Indicated Urine Cult Not Indicated
== END 2022-12-07 09:13 | disposition home or self-care (01) ==
PROVIDERS: Emergency Provider Emergency Medicine; PCP Family Medicine
DX: K59.00 Constipation, unspecified (principal)
CPT/HCPCS: 36415; 74177; 80053; 81003; 81015; 83690; 85025; 99283; Q9967

== ENCOUNTER → 2023-02-11 08:02 | Outpatient (CLI) | payer BC, SELFPAY ==
--- NOTE | 2023-02-11 08:03 | DI.MRI.S_ITS ---
PROCEDURE: MR PELVIS WO/W CON INDICATIONS: elevated PSA TECHNIQUE: Coronal HASTE, axial T1 FSE with fat saturation, 3-plane nonbreath-hold T2 FSE. After the administration of contrast, dynamic axial, delayed axial and coronal VIBE or 2-D FLASH with fat saturation through the pelvis. Optional diffusion weighted imaging and ADC may be performed. COMPARISON: [facility], CT, CT ABDOMEN PELVIS W CON, 12/07/2022, 8:13. FINDINGS: Image quality: Diffusion weighted and dynamic contrast enhanced images are diagnostic. Prostate: Gland size is 5.2 x 4.3 x 4.1 cm; ellipsoid gland volume is 48 mL. Lesion #1: Size: 0.4 cm Location: Left anterior peripheral zone, mid gland (ADC series 24, image 12) T2 signal: Heterogeneous signal intensity DWI/ADC signal: Hypointense on ADC images without definite DWI hyperintensity DCE: Absent YANELI: No definite evidence of YANELI Seminal vesicle invasion: Negative PI-RADS: T2 signal - 3; ADC - 3; DCE - negative; Overall score: PI-RADS 3. Genitourinary system: Bladder wall thickness is normal. Distal ureters are non distended. Bowel and peritoneum: No pathologic free pelvic fluid. Inferior colon and small bowel loops are normal in caliber. Nodes and vessels: No pelvic or inguinal adenopathy by size criteria. Iliac vessels are normal in caliber. Bones: Heterogeneous appearance of the bone marrow, nonspecific IMPRESSION: 1. A 0.4 cm lesion at the left anterior peripheral zone, mid gland, is consistent with PI-RADS category 3. 2. No suspicious lymph nodes identified within the imaged pelvis. Dictated by: David Gunter M.D. on 02/11/2023 at 12:20 Approved by: David Gunter M.D. on 02/11/2023 at 12:43
== END ==
PROVIDERS: PCP Family Medicine; Referring Provider Specialist; Visit Provider Specialist
DX: N40.1 Benign prostatic hyperplasia with lower urinary tract symptoms (principal); N13.8 Other obstructive and reflux uropathy; R97.20 Elevated prostate specific antigen [PSA]; N42.9 Disorder of prostate, unspecified
CPT/HCPCS: 72197; A9579

== ENCOUNTER → 2023-03-22 15:03 | Outpatient (CLI) | payer BC, SELFPAY | PROVIDERS: PCP Family Medicine; Referring Provider Specialist; Visit Provider Specialist | DX: R97.20 Elevated prostate specific antigen [PSA] (principal) | CPT/HCPCS: 36415; 84153 ==

== ENCOUNTER → 2023-06-25 10:23 | Outpatient (CLI) | payer BC, SELFPAY ==
[2023-06-26 09:59] LABS: PSA, Total 5.2 ng/mL (0.0-4.0)
== END ==
PROVIDERS: PCP Family Medicine; Referring Provider Specialist; Visit Provider Specialist
DX: R97.20 Elevated prostate specific antigen [PSA] (principal)
CPT/HCPCS: 36415; 84153; 84154

== ENCOUNTER → 2024-01-07 12:57 | Outpatient (CLI) | payer BC, SELFPAY ==
[2024-01-09 21:49] LABS: PSA Free % 15.6 % (.); PSA, Total 4.5 ng/mL (0.0-4.0)
== END ==
PROVIDERS: PCP Family Medicine; Referring Provider Specialist; Visit Provider Specialist
DX: R97.20 Elevated prostate specific antigen [PSA] (principal)
CPT/HCPCS: 36415; 84153; 84154

== ENCOUNTER 2024-02-03 10:13 | Day surgery (SDC) | payer OTHER, SELFPAY ==
--- NOTE | 2024-02-03 | PATH_ITS ---
[facility] Accession Number: [id number] No. of containers..02 Tissue . 01 Material submitted: . PART A: esophagus - ESOPHAGUS PART B: esophagus - POLYP ESOPHAGUS . 01 Diagnosis: Part A: ESOPHAGUS: Squamous mucosa with reactive changes and increased intraepithelial eosinophils (up to 50 per high power field). See comment. . Part B: POLYP ESOPHAGUS: Polypoid squamous mucosa with increased intraepithelial eosinophils, and with mucosal and submucosal chronic inflammation. No dysplasia, malignancy, or infectious organisms identified. See comment. STO 02/06/20241729 Local . 01 Comment: Part A: The features are consistent with eosinophilic esophagitis in the right clinical setting, particularly if any of the biopsies originated from the mid to upper esophagus. . Part B: The presence of chronic inflammation may correlate with a polypoid appearance on endoscopy. No neoplasm is seen. . 01 Electronically signed: . Saroj Hernandez MD, Pathologist NPI- [id number] . 01 Gross description: . Part A: ESOPHAGUS: Received in formalin are multiple fragment(s) of garcia, soft tissue measuring 0.1 x 0.1 x 0.1 cm to 0.4 x 0.2 x 0.2 cm submitted entirely in 1 cassette(s) . Part B: POLYP ESOPHAGUS: Received in formalin are 2 fragment(s) of garcia, soft tissue measuring 0.1 x 0.1 x 0.1 cm in aggregate submitted entirely in 1 cassette(s) /STEPH 02/06/20241729 Local . 01 Microscopic: . An ABPAS stain was performed to evaluate for fungal organisms, and is negative. The control stains appropriately. . An ABPAS stain was performed to evaluate for fungal organisms or granular cell tumor, and is negative.The control stains appropriately. . 01 Pathologist provided ICD-10: K20.0, K22.81 . 01 CPT . 774080, 789886, 798685, 192166 Specimen Comment: A courtesy copy of this report has been sent to [phone] Performed at: 01 [facility] [address] [place] [address] [id number] MD Saroj Hernandez MD Phone: [phone]
--- NOTE | 2024-02-03 10:34 | PM.PREOP ---
Pre-operative Note COVID-19 COVID-19 status: Negative Interval Note History & Physical reviewed/Exam performed by Physician: Yes Changes to H&P: No ASA Class (for procedural sedation): II
[2024-02-03 10:35] VITALS: BP 118/74; PULSE 77; RESP 16; TEMP 36.3; O2SAT 96
--- NOTE | 2024-02-03 10:35 | PM.OP.EGD ---
Operative Date/Time/Diagnoses Date of procedure: 02/03/24 Pre-op diagnosis: See indication and findings Procedure & Clinicians Study performed: EGD Indications: Substernal dysphagia Surgeon: Raad Chan Procedure Notes Procedure in detail: After informed consent was obtained the patient was placed in left lateral decubitus position. The video upper scope was placed into the oropharynx and with the patient's help swallowed into the esophagus. The esophagus stomach and duodenum were carefully evaluated. On withdrawal, retroflexed view the GE junction was performed. The scope was removed. The patient tolerated the procedure well. Blood loss none Complications none Sedation mac Findings 1. Difficult to sedate with episodes appearing sound like laryngospasm when the scope was not even in the hypopharynx. Eventually scope was passed but only briefly. 2. Somewhat ringed esophagus though occurred during episodes of coughing. Unable to take biopsies. 3. Possible 2 distal erosions unable to see completely 4. Otherwise normal stomach and duodenum though briefly seen Given the problems with sedation and his reaction I think we should reschedule him to be done with general anesthesia. This will be set up for him when schedules permit.
[2024-02-03] MEDS: LACTATED RINGERS 1,000 ML 42 ML IV (10:43)
[2024-02-03 11:40] VITALS: BP 109/78; PULSE 62; RESP 13; TEMP 36.2; O2SAT 96
[2024-02-03 11:45] VITALS: BP 119/77; PULSE 63; RESP 12; O2SAT 96
[2024-02-03 11:50] VITALS: BP 110/72; PULSE 67; RESP 12; O2SAT 94
[2024-02-03 11:55] VITALS: BP 114/85; PULSE 65; RESP 13; O2SAT 95
[2024-02-03 12:08] VITALS: BP 118/75; PULSE 61; RESP 12; O2SAT 96
--- NOTE | 2024-02-03 12:30 | P.OP.EGD_ITS ---
Operative Date/Time/Diagnoses Date of procedure: 02/03/24 Pre-op diagnosis: See indication and findings Procedure & Clinicians Study performed: EGD Indications: Dysphagia Surgeon: Raad Chan Procedure Notes Procedure in detail: After informed consent was obtained the patient was placed in left lateral decubitus position. The video upper scope was placed into the oropharynx and with the patient's help swallowed into the esophagus. The esophagus stomach and duodenum were carefully examined. On withdrawal, retroflexed view the GE junction was performed. The scope was removed. The patient tolerated procedure well. Blood loss none Complications none Sedation mac Findings 1. Multiple concentric ring structures particularly prominent in the mid esophagus with what appeared to be some somewhat friable mucosa. Biopsies taken to rule out eosinophilic esophagitis 2. 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 Is almost appeared more reflux like. The stricture could be seen to radial drill operator the scope on retroflexed view and when moving back and forth. Size is probably 33 [place]. 3. Normal stomach duodenal bulb and sweep. We will await biopsies to confirm the eosinophilic esophagitis. At that time I will place him on swallowed fluticasone. I will keep him on it for 2-4 months before rescoped in him. At that time if he has continued dysphagia and pending the look at the time of endoscopy selective dilation of his GE junction will be considered. He will stay away from the typical food groups that may cause EOE. The office will be in touch regarding repeating his procedure.
== END 2024-02-03 12:27 | disposition home or self-care (01) ==
PROVIDERS: PCP Family Medicine; Referring Provider Internal Medicine Gastroenterology; Visit Provider Internal Medicine Gastroenterology
PROC: 0DJ08ZZ Inspection of Upper Intestinal Tract, Via Natural or Artificial Opening Endoscopic (ICD-10-PCS; CPT 43235; principal; 2024-02-03 11:00)
DX: K20.0 Eosinophilic esophagitis (principal); K22.81 Esophageal polyp
CPT/HCPCS: 43239; J2704

== ENCOUNTER → 2024-03-11 06:49 | Outpatient (CLI) | payer OTHER, SELFPAY ==
[2024-03-11 08:34] LABS: Add Manual Diff / Slide Review NO; Basophils Absolute Auto 0 /uL (0-100); Basophils Percent Auto 0.8 % (0-2); Eosinophils Absolute Auto 300 /uL (0-450); Eosinophils Percent Auto 7.9 % (2-4); Hematocrit 37.7 % (41-53); Hemoglobin 12.6 g/dL (13.5-17.5); Lymphocytes Absolute Auto 1700 /uL (1100-4500); Mean Corpuscular HGB Conc 33.4 % (30-36); Mean Corpuscular Hemoglobin 31.8 PG (26-34); Monocytes Absolute Auto 400 /uL (0-900); Monocytes Percent Auto 9.5 % (3-14); Neutrophils Absolute Auto 1900 /uL (1500-7000); Neutrophils Percent Auto 43.8 % (50-75); Platelet Count 254 X10^3/uL (150-400); Red Blood Cell Count 3.97 X10^6/uL (4.5-5.9); Red Cell Distribution Width 12.7 % (11.6-14.8); White Blood Cell Count 4.4 X10^3/uL (4.5-11.0)
[2024-03-11 09:07] LABS: HEMOLYSIS < 15 (0-50)
[2024-03-11 09:12] LABS: Alanine Aminotransferase 20 IU/L (<50); Albumin 4.1 g/dL (3.5-5.0); Albumin Globulin Ratio 1.4 (1.0-2.8); Alkaline Phosphatase 63 U/L (38-126); Aspartate Aminotransferase 28 IU/L (17-59); BUN Creatinine Ratio 15.5 (6-22); Bilirubin Total 0.4 mg/dL (0.2-1.3); Blood Urea Nitrogen 15 mg/dL (9-20); Calcium 9.5 mg/dL (8.4-10.2); Carbon Dioxide 28 mmol/L (22-32); Chloride 104 mmol/L (98-107); Cholesterol 172 mg/dL (140-199); Estimated Glomerular Filt Rate > 60 mL/min (>60); Glucose 86 mg/dL (70-100); HDL Cholesterol 56 mg/dL (40-60); LDL Cholesterol Calculated 105 mg/dL (<100); Potassium 4.6 mmol/L (3.4-5.1); Sodium 137 mmol/L (137-145); Total Protein 7.1 g/dL (6.3-8.2); Triglycerides 57 mg/dL (35-150)
[2024-03-13 10:48] LABS: Vitamin B12 440 pg/mL (239-931)
[2024-03-13 13:04] LABS: Ferritin 79 ng/mL (18-464)
== END ==
LOC: LAB 06:50
PROVIDERS: PCP Family Medicine; Referring Provider Naturopath; Visit Provider Naturopath
DX: Z00.00 Encounter for general adult medical examination without abnormal findings (principal); D50.9 Iron deficiency anemia, unspecified
CPT/HCPCS: 36415; 80053; 80061; 82607; 82728; 85025

== ENCOUNTER → 2024-07-01 15:03 | Outpatient (CLI) | payer BC, SELFPAY ==
[2024-07-02 12:36] LABS: PSA Free % 15.5 % (.); PSA, Total 4.2 ng/mL (0.0-4.0)
== END ==
PROVIDERS: PCP Family Medicine; Referring Provider Specialist; Visit Provider Specialist
DX: R97.20 Elevated prostate specific antigen [PSA] (principal); N40.1 Benign prostatic hyperplasia with lower urinary tract symptoms; N13.8 Other obstructive and reflux uropathy
CPT/HCPCS: 36415; 84153; 84154

== ENCOUNTER → 2025-10-05 11:32 | Outpatient (CLI) | payer BC, SELFPAY ==
[2025-10-05 13:16] LABS: Prostate Specific Antigen 7.34 ng/mL (0.10-4.00)
== END ==
PROVIDERS: PCP Family Medicine; Referring Provider Urology; Visit Provider Urology
DX: R97.20 Elevated prostate specific antigen [PSA] (principal)
CPT/HCPCS: 36415; 84153